=== PATIENT | male | born 1965 | race Caucasian/White ===

== ENCOUNTER 2016-07-01 10:33 | Emergency (ER) | payer OTHER ==
[~2016-07-01 10:33] MED LIST: BENTYL20 MG PO; CARDIZEM CD180 MG PO; ENTYVIO 300 MG300 MG IV; MYLICON CHEWABL80 MG PO; PROTONIX20 MG PO
[2016-07-01 11:25] LABS: HEMOGLOBIN 14.7 gm/dl (14.0-17.5); RED BLOOD COUNT 5.86 M/UL (4.20-5.50); WHITE BLOOD COUNT 7.7 K/UL (4.5-11.0)
[2016-07-01 12:31] LABS: BUN/CREATININE RATIO 16 (0-10)
== END 2016-07-01 17:04 | disposition home or self-care (01) ==
LOC: ER1 10:33
PROVIDERS: Emergency Medicine
DX: M54.5 Low back pain (principal); R51 Headache; R11.10 Vomiting, unspecified; R68.83 Chills (without fever); R05 Cough; R09.81 Nasal congestion; I10 Essential (primary) hypertension; Z79.899 Other long term (current) drug therapy
CPT/HCPCS: 36415; 71020; 72131; 80053; 81001; 85025; 87040; 96361; 96374; 96375; 99284; J2270; J2405; J7030

== ENCOUNTER → 2016-07-20 | Outpatient (CLI) | payer OTHER | LOC: RAD 08:43 | DX: M79.672 Pain in left foot (principal); M25.571 Pain in right ankle and joints of right foot; M25.572 Pain in left ankle and joints of left foot; M25.541 Pain in joints of right hand; M25.542 Pain in joints of left hand; M19.90 Unspecified osteoarthritis, unspecified site | CPT/HCPCS: 73030; 73080; 73110; 73130; 73564; 73610; 73630 ==

== ENCOUNTER → 2020-08-12 | Outpatient (CLI) | payer OTHER ==
[~2020-08-12] MED LIST changes: +ASPIRIN EC81 MG PO; +BACTRIM DS TAB1 EACH PO; +BENTYL 20MG TAB20 MG PO; +CIALIS10 MG PO; +COLACE100 MG PO; +CYANOCOBAL1000 MCG/1 IM; +DILTIAZEM ER240 M1 PO; +DILTIAZEM ER240 M2 PO; +ENTOCORT EC3 MG PO; +FERROUS SULFAT325 M2 PO; +GABAPENTIN800 MG PO; +HYDROCODON-ACE1 EAC4 PO; +KEFLEX500 MG PO; +LISINOPRIL20 MG PO; +NORCO 7.5-3251 EACH PO; +STELARA90 MG/1 ML SQ; +VITAMIN D21250 MCG PO; +VOLTREN XR 100100 MG PO
== END ==
LOC: RAD 11:27
DX: M79.671 Pain in right foot (principal); R60.0 Localized edema
CPT/HCPCS: 73630

== ENCOUNTER 2020-08-14 21:29 | Emergency (ER) | payer OTHER ==
[~2020-08-14 21:29] MED LIST changes: -BENTYL 20MG TAB20 MG PO; -CIALIS10 MG PO; -CYANOCOBAL1000 MCG/1 IM; -DILTIAZEM ER240 M1 PO; -ENTOCORT EC3 MG PO; -FERROUS SULFAT325 M2 PO; -GABAPENTIN800 MG PO; -HYDROCODON-ACE1 EAC4 PO; -STELARA90 MG/1 ML SQ; -VITAMIN D21250 MCG PO; -VOLTREN XR 100100 MG PO
[2020-10-08] MEDS ORDERED: BENTYL 20MG TAB20 MG PO (08:11)
[2020-10-08] MEDS ORDERED: ENTOCORT EC3 MG PO (08:13)
[2020-10-08] MEDS ORDERED: STELARA90 MG/1 ML SQ ×2 (08:14→15:28)
== END 2020-08-14 23:30 | disposition left against medical advice (07) ==
LOC: ER1 21:29
DX: Z53.21 Procedure and treatment not carried out due to patient leaving prior to being seen by health care provider (principal)

== ENCOUNTER 2020-10-08 08:18 | Inpatient (IN) | payer OTHER ==
[~2020-10-08] VITALS: Ht 185.4 cm; Wt 77.1 kg
[~2020-10-08 08:18] MED LIST changes: +BENTYL 20MG TAB20 MG PO; +ENTOCORT EC3 MG PO; +STELARA90 MG/1 ML SQ
[2020-10-08 08:46] LABS: HEMOGLOBIN 9.8 gm/dl (14.0-17.5); RED BLOOD COUNT 3.55 M/UL (4.20-5.50); WHITE BLOOD COUNT 10.7 K/UL (4.5-11.0)
[2020-10-08 09:04] LABS: BUN/CREATININE RATIO 58 (0-10)
[2020-10-08] MEDS ORDERED: VOLTREN XR 100100 MG PO ×2 (13:14→15:37)
[2020-10-08] MEDS ORDERED: DILTIAZEM ER240 M1 PO (13:15)
[2020-10-08] MEDS ORDERED: GABAPENTIN800 MG PO (13:16)
[2020-10-08] MEDS ORDERED: HYDROCODON-ACE1 EAC4 PO (13:17)
[2020-10-08 14:02] LABS: HEMOGLOBIN 7.9 gm/dl (14.0-17.5)
[2020-10-08] MEDS ORDERED: STELARA90 MG/1 ML SQ (15:28)
[2020-10-08] MEDS ORDERED: CIALIS10 MG PO (15:30)
[2020-10-08] MEDS ORDERED: VITAMIN D21250 MCG PO (15:41)
[2020-10-08] MEDS ORDERED: CYANOCOBAL1000 MCG/1 IM (15:43)
[2020-10-08] MEDS ORDERED: FERROUS SULFAT325 M2 PO (15:43)
[2020-10-09 03:21] LABS: HEMOGLOBIN 9.1 gm/dl (14.0-17.5); RED BLOOD COUNT 3.24 M/UL (4.20-5.50)
[2020-10-09 03:26] LABS: WHITE BLOOD COUNT 4.7 K/UL (4.5-11.0)
[2020-10-09 03:43] LABS: BUN/CREATININE RATIO 46 (0-10)
[2020-10-09 14:42] LABS: HEMOGLOBIN 5.6 gm/dl (14.0-17.5)
[2020-10-09 21:50] LABS: HEMOGLOBIN 6.4 gm/dl (14.0-17.5)
[2020-10-10 08:18] LABS: HEMOGLOBIN 7.8 gm/dl (14.0-17.5)
[2020-10-10 08:19] LABS: RED BLOOD COUNT 2.68 M/UL (4.20-5.50); WHITE BLOOD COUNT 6.7 K/UL (4.5-11.0)
[2020-10-10 08:46] LABS: BUN/CREATININE RATIO 56 (0-10)
[2020-10-10 16:03] LABS: HEMOGLOBIN 7.7 gm/dl (14.0-17.5)
[2020-10-10 22:33] LABS: HEMOGLOBIN 6.3 gm/dl (14.0-17.5)
[2020-10-11 04:35] LABS: RED BLOOD COUNT 2.36 M/UL (4.20-5.50); WHITE BLOOD COUNT 4.3 K/UL (4.5-11.0)
[2020-10-11 04:56] LABS: BUN/CREATININE RATIO 22 (0-10)
[2020-10-11 10:38] LABS: HEMOGLOBIN 8.1 gm/dl (14.0-17.5)
[2020-10-11 16:53] LABS: HEMOGLOBIN 9.6 gm/dl (14.0-17.5)
[2020-10-13 02:18] LABS: HEMOGLOBIN 8.1 gm/dl (14.0-17.5); RED BLOOD COUNT 2.67 M/UL (4.20-5.50); WHITE BLOOD COUNT 4.4 K/UL (4.5-11.0)
[2020-10-13] MEDS ORDERED: PROTONIX20 MG PO (10:12)
== END 2020-10-13 12:58 | disposition home or self-care (01) | DRG 378 ==
LOC: ER1 08:18 → PROG CARE 12:06 → CDU 12:06 → PROG CARE 14:25
PROVIDERS: Internal Medicine Gastroenterology; Nurse Practitioner; Physician Assistant Medical; ADMIT Internal Medicine
PROC: 30233N1 Transfusion of Nonautologous Red Blood Cells into Peripheral Vein, Percutaneous Approach (ICD-10-PCS; 2020-10-08)
PROC: 0DJ08ZZ Inspection of Upper Intestinal Tract, Via Natural or Artificial Opening Endoscopic (ICD-10-PCS; principal; 2020-10-09 11:35)
PROC: 0W3P8ZZ Control Bleeding in Gastrointestinal Tract, Via Natural or Artificial Opening Endoscopic (ICD-10-PCS; 2020-10-10)
PROC: 3E0G8GC Introduction of Other Therapeutic Substance into Upper GI, Via Natural or Artificial Opening Endoscopic (ICD-10-PCS; 2020-10-10)
PROC: 30233N1 Transfusion of Nonautologous Red Blood Cells into Peripheral Vein, Percutaneous Approach (ICD-10-PCS; 2020-10-10)
DX: K25.4 Chronic or unspecified gastric ulcer with hemorrhage (principal); D62 Acute posthemorrhagic anemia; K50.90 Crohn's disease, unspecified, without complications; I10 Essential (primary) hypertension; R00.0 Tachycardia, unspecified; R55 Syncope and collapse; Z79.899 Other long term (current) drug therapy; K44.9 Diaphragmatic hernia without obstruction or gangrene; Z79.82 Long term (current) use of aspirin; F17.220 Nicotine dependence, chewing tobacco, uncomplicated
CPT/HCPCS: ECHO; 36415; 36430; 71045; 80048; 80053; 81001; 82272; 82550; 82553; 82962; 83605; 83690; 83735; 83880; 84484; 85014; 85018; 85025; 85027; 85610; 86850; 86900; 86901; 86920; 93005; 93306; 96374; 96375; 99285; C9113; J0171; J1756; J2250; J2405; J2704; J2765; J3010; J7030; J7040; P9016; Q9967; U0002

== ENCOUNTER 2020-12-02 18:04 | Emergency (ER) | payer OTHER ==
[~2020-12-02 18:04] MED LIST changes: +CIALIS10 MG PO; +CYANOCOBAL1000 MCG/1 IM; +DILTIAZEM ER240 M1 PO; +FERROUS SULFAT325 M2 PO; +GABAPENTIN800 MG PO; +HYDROCODON-ACE1 EAC4 PO; +VITAMIN D21250 MCG PO; +VOLTREN XR 100100 MG PO
[2020-12-02] MEDS ORDERED: AUGMENTIN 875-1 EACH PO (23:43)
[2020-12-02] MEDS ORDERED: HYDROCODON-ACE1 EAC4 PO (23:43)
== END 2020-12-02 23:55 | disposition home or self-care (01) ==
LOC: ER1 18:04
DX: S92.422A Displaced fracture of distal phalanx of left great toe, initial encounter for closed fracture (principal); I10 Essential (primary) hypertension; Z79.899 Other long term (current) drug therapy; W20.8XXA Other cause of strike by thrown, projected or falling object, initial encounter
CPT/HCPCS: 73630; 99283